=== PATIENT | male | born 1950 ===

== ENCOUNTER 2017-02-23 11:00 | Inpatient (IN) | payer OTHER ==
[~2017-02-23] VITALS: Ht 182.9 cm; Wt 99.8 kg
[2017-02-23] MEDS ORDERED: ATACAND16 MG PO (13:37)
[2017-02-23] MEDS ORDERED: ZOCOR20 MG PO (13:37)
[2017-02-23] MEDS ORDERED: [UNRECOGNIZED DRUG - OTHER] PO (13:38)
[2017-02-24] MEDS ORDERED: PERCOCET 5-3251 EACH PO (13:07)
[2017-02-24] MEDS ORDERED: AMOX1TAB12 PO (13:07)
[2017-02-24] MEDS ORDERED: COLACE100 MG PO (13:07)
[2017-02-24] MEDS ORDERED: NEURONTIN800 MG PO (13:07)
[2017-02-24] MEDS ORDERED: AMBIEN10 MG PO (13:07)
== END 2017-02-25 16:38 | DRG 455 ==
LOC: O/R 02-24 05:00 → SURH 02-24 05:00 → SURG 02-24 11:00 → SURH 02-24 14:14
PROVIDERS: Orthopaedic Surgery Orthopaedic Surgery of the Spine
PROC: 0SG30AJ Fusion of Lumbosacral Joint with Interbody Fusion Device, Posterior Approach, Anterior Column, Open Approach (ICD-10-PCS; 2017-02-24)
PROC: 0SG0071 Fusion of Lumbar Vertebral Joint with Autologous Tissue Substitute, Posterior Approach, Posterior Column, Open Approach (ICD-10-PCS; 2017-02-24)
PROC: 0ST40ZZ Resection of Lumbosacral Disc, Open Approach (ICD-10-PCS; 2017-02-24)
PROC: 07DS3ZZ Extraction of Vertebral Bone Marrow, Percutaneous Approach (ICD-10-PCS; 2017-02-24)
PROC: 00NY0ZZ Release Lumbar Spinal Cord, Open Approach (ICD-10-PCS; principal; 2017-02-24 09:00)
DX: M51.17 Intervertebral disc disorders with radiculopathy, lumbosacral region (principal); M47.27 Other spondylosis with radiculopathy, lumbosacral region; M48.07 Spinal stenosis, lumbosacral region; I10 Essential (primary) hypertension